=== PATIENT | female | born 1965 | race Caucasian/White ===

== ENCOUNTER 2017-08-29 10:51 | Emergency (ER) | payer BC ==
[2017-08-29] VITALS (7 sets, daily range): BP systolic 131–148; BP diastolic 67–81
[~2017-08-29] VITALS: Ht 175.3 cm; Wt 85.0 kg
[2017-08-29 11:56] LABS: ALBUMIN 3.8 g/dL (3.4-5.0); CHLORIDE 108 mmol/L (98-107)
[2017-08-29 12:01] LABS: ALANINE AMINOTRANSFERASE 27 U/L (12-78); ALKALINE PHOSPHATASE 70 U/L (45-117); ANION GAP 7 mmol/L (5-15); BILIRUBIN,TOTAL 0.5 mg/dL (0.2-1.0); CALCIUM 8.7 mg/dL (8.5-10.1); CREATININE 1.06 mg/dL (0.55-1.02); MEAN CORPUSCULAR HEMOGLOBIN 24.6 pg (27.0-34.8); MEAN CORPUSCULAR HGB CONC 31.5 g/dL (32.4-35.8); MEAN CORPUSCULAR VOLUME 78.2 fL (80-100); PLATELET COUNT 332 x10^3/uL (130-400); RED BLOOD COUNT 2.74 x10^6/uL (3.82-5.3); TOTAL PROTEIN 7.6 g/dL (6.4-8.2)
[2017-08-29 12:16] LABS: BASOPHILS # (AUTO) 0.02 x10^3/uL (0-0.1); BASOPHILS % (AUTO) 1 % (0-1); EOSINOPHILS # (AUTO) 0.18 x10^3/uL (0-0.4); EOSINOPHILS % (AUTO) 4 % (1-7); LYMPHOCYTES # (AUTO) 1.04 x10^3/uL (1-3.4); LYMPHOCYTES % (AUTO) 24 % (22-44); MD MORPH REVIEW ONLY; MONOCYTES # (AUTO) 0.38 x10^3/uL (0.2-0.8); MONOCYTES % (AUTO) 9 % (2-9); NEUTROPHILS # (AUTO) 2.78 x10^3/uL (1.8-6.8); NEUTROPHILS % (AUTO) 63 % (42-75)
[2017-08-29 12:17] LABS: ANISOCYTOSIS 1+; HYPOCHROMIA 1+; POLYCHROMASIA 1+
[2017-08-29 12:18] LABS: MICROCYTOSIS 1+
[2017-08-29 12:19] LABS: <PLATELET ESTIMATE> ADEQUATE; <PLT MORPHOLOGY> NORMAL PLT MORPH
[2017-08-29 12:35] LABS: INTERNATIONAL NORMALIZED RATIO 0.97 (0.93-1.1)
== END 2017-08-29 17:46 ==
LOC: ED 13:21
DX: D62 Acute posthemorrhagic anemia (principal)
CPT/HCPCS: 36415; 36430; 80053; 85025; 85610; 85730; 86850; 86900; 86923; 99285; P9016